=== PATIENT | male | born 1955 | race American Indian/Alaskan Native ===

== ENCOUNTER 2016-08-30 09:36 | Outpatient (CLI) | payer OTHER ==
--- NOTE | 2016-08-30 11:03 | XRay Report ---
CHEST 2 VIEWS INDICATION: Bronchitis. COMPARISON: None similar at this institution. FINDINGS: PA and lateral chest radiographs demonstrate bilateral mid to lower lung opacities/pneumonias/scarring, right greater than left with obscured right hemidiaphragm. Small right pleural effusion or pleural thickening. No CHF. Normal cardiomediastinal silhouette. Intact bones. CONCLUSION: Bilateral opacities/infiltrates, exact age indeterminate, as described. Please correlate clinically and with prior chest imaging, if available. Thank you for the opportunity to participate in this patient's care.
== END 2016-08-30 09:37 | disposition home or self-care (01) ==
LOC: XRAY 09:36
PROVIDERS: ATTEND Internal Medicine
DX: J40 Bronchitis, not specified as acute or chronic (principal); J90 Pleural effusion, not elsewhere classified; J18.9 Pneumonia, unspecified organism; L90.5 Scar conditions and fibrosis of skin
CPT/HCPCS: 71020